=== PATIENT | male | born 1935 ===

== ENCOUNTER 2022-04-21 06:00 | Day surgery (SDC) | payer OTHER ==
[~2022-04-21 06:00] MED LIST: ELIQUIS5 MG PO; FARXIGA10 MG PO; ISOSORBIDE DINI30 MG PO; SYNTHROID50 MCG PO; TOPROL XL25 M1 PO; ZESTRIL2.5 MG PO
== END 2022-04-21 13:25 | disposition home or self-care (01) ==
LOC: CIR.AMB 06:00
PROVIDERS: ATTEND Surgery Surgery of the Hand
DX: M65.842 Other synovitis and tenosynovitis, left hand (principal); Z20.822 Contact with and (suspected) exposure to COVID-19; I95.9 Hypotension, unspecified; Z95.0 Presence of cardiac pacemaker; Z88.6 Allergy status to analgesic agent